=== PATIENT | male | born 1975 | race Caucasian/White ===

== ENCOUNTER 2017-04-03 13:42 | Emergency (ER) | payer OTHER ==
[~2017-04-03] VITALS: Ht 177.8 cm; Wt 104.5 kg
[~2017-04-03 13:42] MED LIST: BUPR-97 PO; CETI10CA PO; ESCI5SOL PO; OMEP20TA86 PO
[2017-04-03 13:50] VITALS: BP 126/88; PULSE 52; RESP 16; O2SAT 97
--- NOTE | 2017-04-03 14:27 | ED.REPORT ---
HPI-Back Pain 40 and Over Date of Service Apr 03, 2017 ED Provider: Doc,Ed MD History of Present Illness: seen at [facility] on Thursday, dx with stone given flomax and oxycodone, no vomiting. symptoms changed last night. [facility] right [facility] pain today. Nursing Notes Stated Complaint: POSSIBLE KIDNEY STONE Chief Complaint: Male Abdominal Pain Nursing Notes Reviewed: Yes Allergies: Coded Allergies: No Known Drug Allergies (Verified Allergy, Unknown, 04/03/17) Scheduled Bupropion ER (Wellbutrin XL) 150 Mg Tab.er.24h 150 MG PO DAILY Cetirizine HCl (Zyrtec) 10 Mg Capsule 10 MG PO HS Escitalopram Oxalate (Lexapro) 5 Mg/5 Ml Solution 20 MG PO DAILY Omeprazole (Omeprazole) 20 Mg Tablet.dr 20 MG PO DAILY General Time Seen by MD: 14:26 Chief Complaint Back pain Hx Obtained From: Patient Sudden in Onset?: No Past Medical History Past Medical History Denies: Asthma Past Surgical History vas and reversal Reports: Appendectomy, Tonsillectomy Social History Alcohol Use: "Social" Drug Use: Denies drug use Occupation , works at the [employer], in the , being medical retired for conversion disorder in the next 6 months 04/03/2017 Ambulatory Status Independent Review of Systems Basic Review of Systems Eyes: Vision NL, No discharge Hematologic: No bleeding, No bruising Allergy / Immune: No allergy Physical Exam Initial Vital Signs Vital Signs (First) Date Time Temp Pulse Resp B/P Pulse Ox O2 Delivery O2 Flow Rate FiO2 04/03/17 13:50 36.7 52 16 126/88 97 Room Air Initial VS: Reviewed, Vital signs normal Head / Eyes: Atraumatic, Normocephalic, PERRL ENT: Mucous membranes moist, Conjunctiva normal, No scleral icterus Neck: Supple, Non-tender, Full range of motion Lymphatic: No lymphadenopathy Extremities: Vascular intact, Neuro intact, No swelling, No tenderness Skin: Warm, Dry, No cyanosis Psychiatric: Mood/affect normal, Behavior normal, Normal thought content General/Constitutional: Awake, Alert, No acute distress, Well appearing, Well developed, Well hydrated, Well nourished, Cooperative, Not toxic appearing Respiratory / Chest: Atraumatic, Breath sounds NL, Breath sounds = bilat, No respiratory distress Cardiovascular: Heart rate NL, Regular rhythm, Heart sounds NL, No gallop Abdomen: Atraumatic, Soft, Non-tender, McBurney's non-tender, No guarding, No rebound, BS normoactive Back: Atraumatic, Inspection NL, Full range of motion, Painless range of motion patient with small papule on right back. no sign of active infection Neurologic: Oriented X3, Speech NL, No motor deficits Interpretation & Diagnostics Lab Results Interpretation Result Diagram: 04/03/17 1445 04/03/17 1445 Test 04/03/17 14:45 04/03/17 15:55 White Blood Count 4.6th/mm3 (3.8-10.1) Red Blood Count 4.71mil/mm3 (4.40-5.80) Hemoglobin 13.3g/dL (13.8-17.2) Hematocrit 40.0% (41.0-50.0) Mean Corpuscular Volume 84.9fL (81-100) Mean Corpuscular Hemoglobin 28.2pg (27.0-35.0) Mean Corpuscular Hemoglobin Concent 33.3% (32.0-37.0) Red Cell Distribution Width 14.4% (12.3-15.4) Platelet Count 242bil/L (150-400) Neutrophils (%) (Auto) 40.4% (40-74) Lymphocytes (%) (Auto) 48.0% (14-46) Monocytes (%) (Auto) 7.0% (4-12) Eosinophils (%) (Auto) 3.7% (0-5) Basophils (%) (Auto) 0.7% (0-3) Sodium Level 140mEq/L (134-144) Potassium Level 4.8mEq/L (3.5-5.2) Chloride Level 103mEq/L (97-108) Carbon Dioxide Level 25mmol/L (18-29) Blood Urea Nitrogen 16mg/dL (6-24) Creatinine 0.90mg/dL (0.76-1.27) Estimat Glomerular Filtration Rate 99mL/min (>59) Glucose Level 93mg/dL (60-99) Calcium Level 9.4mg/dL (8.5-10.1) Total Bilirubin 0.5mg/dL (0.0-1.2) Aspartate Amino Transf (AST/SGOT) 44U/L (0-50) Alanine Aminotransferase (ALT/SGPT) 74U/L (0-44) Alkaline Phosphatase 97U/L (25-150) Total Protein 7.1g/dL (6.4-8.4) Albumin 4.4g/dL (3.4-5.0) Urine Color Yellow (YELLOW) Urine Appearance Clear (CLEAR,HAZY) Urine pH 5.5 (5.0-8.0) Urine Specific Sargeant 1.020 (1.003-1.035) Urine Protein Negativemg/dL (NEG,TRACE) Urine Glucose (UA) Negativemg/dL (NEGATIVE) Urine Ketones Negativemg/dL (NEGATIVE) Urine Occult Blood Negative (NEGATIVE) Urine Nitrite Negative (NEGATIVE) Urine Bilirubin Negative (NEGATIVE) Urine Urobilinogen Normalmg/dL (NORMAL) Urine Leukocyte Esterase Negative (NEGATIVE) Urine RBC 0-2/hpf (0-2) Urine WBC 0-5/hpf (0-5) Urine Epithelial Cells None/hpf (NONE-MOD) Urine Crystals None seen (NONE SEEN) Urine Bacteria None/hpf (NONE-FEW) Urine Hyaline Casts None/lpf (NONE) Urine Granular Casts None seen (NONE SEEN) Urine Waxy Casts None seen (NONE SEEN) Urine Red Blood Cell Casts None seen (NONE SEEN) Urine White Blood Cell Casts None seen (NONE SEEN) Urine Mucus None seen (None Seen) Urine Trichomonas None seen (NONE SEEN) Urine Yeast None (NONE SEEN) Urinalysis Comment None Urine Culture Reflexed Not indicated X-Ray Interpretation Xray Interpretation: PROCEDURE: CT KUB ([id number]) INDICATIONS: RIGHT FLANK PAIN TECHNIQUE: Noncontrast 5 mm thick sections acquired from the diaphragms to the symphysis. 5 mm thick coronal and sagittal reformats were then performed. For radiation dose reduction, the following was used: automated exposure control, adjustment of mA and/or kV according to patient size. COMPARISON: None. FINDINGS: Image quality: Diagnostic. Lung bases: Mild atelectasis is noted within the lung bases. Heart size is normal. Urinary system: Punctate nonobstructing renal calculi are evident bilaterally, measuring approximately 2-3 mm in diameter. There is no hydronephrosis or hydroureter. No significant bladder wall thickening is evident. No bladder calculi are seen. The prostate is not enlarged. Other solid organs: The liver is hypodense when compared to the spleen, suggesting hepatic steatosis. Areas of fatty sparing appear to be present within the region of the gallbladder fossa and adjacent to the inferior vena cava/hepatic veins. The spleen, pancreas, and adrenals are within normal limits. Peritoneum and bowel: The stomach, duodenum, and remainder of the small bowel loops are nondilated. Clips at the base of the cecum probably is related to previous appendectomy. There is moderate residual stool identified within the proximal colon. The distal colon is relatively decompressed with areas of bowel wall prominence, which likely is related to lack of intraluminal stool. However, there are additional questionable areas of the small bowel wall thickening within the right lower quadrant. No significant mesenteric inflammation is appreciated. No free fluid, loculated fluid collection or free air is evident. Nodes and vessels: No retroperitoneal or mesenteric adenopathy by size criteria. Aorta and inferior vena cava are normal in caliber. Abdominal wall: No ventral hernias. Pelvic soft tissues: No free pelvic fluid. No inguinal hernias or adenopathy. Abdomen pelvis bones: No suspicious bony lesions. No vertebral body compression fractures. Age-appropriate degenerative changes of the lower lumbar spine are noted. There mild degenerative changes of the right hip. IMPRESSION: 1. Multiple small nonobstructing bilateral renal calculi. No hydronephrosis, hydroureter, ureteral calculi, or bladder calculi are evident. 2. Nonspecific segmental prominence of the wall of a few small bowel loops within the right lower quadrant into the distal colon. This appearance may be exaggerated by incomplete distention. However, the possibility of a multifocal inflammatory process, such as Crohn's disease cannot be entirely excluded and clinical correlation is recommended. 3. No bowel obstruction or abscess. 4. Hepatic steatosis. Dictated by: Damion Herrera M.D. on 04/03/2017 at 14:45 Approved by: Damion Herrera M.D. on 04/03/2017 at 14:52 Re-Eval/Medical Decision Med Decision/Clinical Course 41 year old male presents for evualation of right back pain. Patient with hx of kidney stone dx last week at [facility]. CT indicates punctate small stones in the right and left kidney, none blocking. Urine is negative. labs are normal. exam shows small papule on right back, no sign of infection. No sign of blocking stone or abscess Discharge & Departure Impression: Primary Impression: Back pain Additional Impressions: Kidney calculi Papule Disposition: Home Patient Instructions: Back Pain (ED), Kidney Stones (ED) Additional Instructions: Your labs are looking good. No sign of any infection. The CT shows very small stones in both kidneys. There is no sign of blockage or kidney enlargement. Stones in the kidney are not painful until they start moving. You may have had a larger stone move earlier in the week. The urine looks good. No sign of infection or blood in the urine. Call urology for follow up on the stones. The papule on your back is looking good. Can use lidocaine to the site to help decrease the discomfort. Dermatology would be the place to follow up on that. Please follow with primary care for follow up. [facility] EDSupervising Provider for APC: Lamberto Perez MD copies to: [facility] Christine Peraza Apr 03, 2017 14:27
[2017-04-03] MEDS ORDERED: Ondansetron 2 mg/mL 2 mL Inj IVPUSH ONE (14:35)
[2017-04-03 15:02] LABS: BASOPHILS % (AUTO) 0.7 % (0-3); EOSINOPHILS % (AUTO) 3.7 % (0-5); Mean Corpuscular Hemoglobin 28.2 pg (27.0-35.0); Mean Corpuscular Volume 84.9 fL (81-100); NEUTROPHILS % (AUTO) 40.4 % (40-74); Platelet Count 242 bil/L (150-400)
--- NOTE | 2017-04-03 15:54 | DRSVH ---
PROCEDURE: CT KUB ([id number]) INDICATIONS: RIGHT FLANK PAIN TECHNIQUE: Noncontrast 5 mm thick sections acquired from the diaphragms to the symphysis. 5 mm thick coronal an d sagittal reformats were then performed. For radiation dose reduction, the following was used: aut omated exposure control, adjustment of mA and/or kV according to patient size. COMPARISON: None. FINDINGS: Image quality: Diagnostic. Lung bases: Mild atelectasis is noted within the lung bases. Heart size is normal. Urinary system: Punctate nonobstructing renal calculi are evident bilaterally, measuring approximatel y 2-3 mm in diameter. There is no hydronephrosis or hydroureter. No significant bladder wall thicke duane is evident. No bladder calculi are seen. The prostate is not enlarged. Other solid organs: The liver is hypodense when compared to the spleen, suggesting hepatic steatosis. Areas of fatty sparing appear to be present within the region of the gallbladder fossa and adjacent to the inferior vena cava/hepatic veins. The spleen, pancreas, and adrenals are within normal limit s. Peritoneum and bowel: The stomach, duodenum, and remainder of the small bowel loops are nondilated. Clips at the base of the cecum probably is related to previous appendectomy. There is moderate resid ual stool identified within the proximal colon. The distal colon is relatively decompressed with are as of bowel wall prominence, which likely is related to lack of intraluminal stool. However, there a re additional questionable areas of the small bowel wall thickening within the right lower quadrant. No significant mesenteric inflammation is appreciated. No free fluid, loculated fluid collection or free air is evident. Nodes and vessels: No retroperitoneal or mesenteric adenopathy by size criteria. Aorta and inferior vena cava are normal in caliber. Abdominal wall: No ventral hernias. Pelvic soft tissues: No free pelvic fluid. No inguinal hernias or adenopathy. Abdomen pelvis bones: No suspicious bony lesions. No vertebral body compression fractures. Age-ben ropriate degenerative changes of the lower lumbar spine are noted. There mild degenerative changes o f the right hip. IMPRESSION: 1. Multiple small nonobstructing bilateral renal calculi. No hydronephrosis, hydroureter, ureteral calculi, or bladder calculi are evident. 2. Nonspecific segmental prominence of the wall of a few small bowel loops within the right lower qu adrant into the distal colon. This appearance may be exaggerated by incomplete distention. However, the possibility of a multifocal inflammatory process, such as Crohn's disease cannot be entirely exc luded and clinical correlation is recommended. 3. No bowel obstruction or abscess. 4. Hepatic steatosis. Dictated by: Damion Herrera M.D. on 04/03/2017 at 14:45 Approved by: Damion Herrera M.D. on 04/03/2017 at 14:52
[2017-04-03 16:28] LABS: APPEARANCE,URINE CLEAR (CLEAR,HAZY); COLOR,URINE YELLOW (YELLOW); OCCULT BLOOD,URINE NEGATIVE (NEGATIVE); PH,URINE 5.5 (5.0-8.0)
[2017-04-03 16:29] LABS: UROBILINOGEN,URINE NORMAL (NORMAL)
== END 2017-04-03 19:10 | disposition home or self-care (01) ==
LOC: SED 13:42
DX: N20.0 Calculus of kidney (principal); R23.8 Other skin changes; Z87.442 Personal history of urinary calculi
CPT/HCPCS: 36415; 74176; 80053; 81000; 85025; 96374; 96375; 99285; J1885; J2405